=== PATIENT | female | born 1950 | race Caucasian/White ===

== ENCOUNTER 2019-04-15 09:27 | Outpatient (CLI) | payer MEDICARE, BC ==
[2019-04-15] MEDS ORDERED: FLEC100T PO (10:21)
[2019-04-15] MEDS ORDERED: ATEN25TA PO (10:21)
[2019-04-15] MEDS ORDERED: FURO80TA77 PO (10:21)
[2019-04-15] MEDS ORDERED: APIX2.5T PO (10:21)
[2019-04-15] MEDS ORDERED: GABA300C10 PO (10:21)
[2019-04-15] MEDS ORDERED: LACT1CAP35 PO (10:58)
[2019-04-15] MEDS ORDERED: CALC0.25 PO (10:58)
[2019-04-15] MEDS ORDERED: INSU100I18 SC (10:58)
[2019-04-15] MEDS ORDERED: Iron INJ (10:58)
[2019-04-15] MEDS ORDERED: CALC300T5 PO (10:58)
[2019-04-15] MEDS ORDERED: CHOL100015 PO (10:58)
[2019-04-15] MEDS ORDERED: OMEG1CAP23 PO (10:58)
[2019-04-15] MEDS ORDERED: ALUMINUM PO (10:58)
[2019-04-15] MEDS ORDERED: ALBU1.25 NEB (11:00)
== END 2019-04-15 23:59 | disposition home or self-care (01) ==
LOC: STAR 09:27
PROVIDERS: ATTEND Surgery
DX: Z02.9 Encounter for administrative examinations, unspecified (principal)

== ENCOUNTER 2019-04-18 07:11 | Day surgery (SDC) | payer MEDICARE, BC ==
[2019-04-15 11:19] LABS: BASOPHILS # (AUTO) 0.01 x10^3/uL (0-0.1); BASOPHILS % (AUTO) 0 % (0-1); EOSINOPHILS # (AUTO) 0.21 x10^3/uL (0-0.4); EOSINOPHILS % (AUTO) 3 % (1-7); LYMPHOCYTES # (AUTO) 1.03 x10^3/uL (1-3.4); LYMPHOCYTES % (AUTO) 14 % (22-44); MD NO; MEAN CORPUSCULAR HEMOGLOBIN 32.9 pg (27.0-34.8); MEAN CORPUSCULAR VOLUME 99.7 fL (80-100); MEAN PLATELET VOLUME 8.4 fL (7.4-10.4); MONOCYTES % (AUTO) 6 % (2-9); NEUTROPHILS # (AUTO) 5.64 x10^3/uL (1.8-6.8); NEUTROPHILS % (AUTO) 77 % (42-75); PLATELET COUNT 189 x10^3/uL (130-400); RED BLOOD COUNT 4.05 x10^6/uL (3.82-5.3); RED CELL DISTRIBUTION WIDTH 14.4 % (9.6-15.2)
[2019-04-15 11:31] LABS: INTERNATIONAL NORMALIZED RATIO 0.95 (0.93-1.1)
[2019-04-15 11:33] LABS: CALCIUM 9.2 mg/dL (8.5-10.1); CHLORIDE 101 mmol/L (98-107)
[2019-04-15 11:40] LABS: ALANINE AMINOTRANSFERASE 32 U/L (12-78); ALBUMIN 3.5 g/dL (3.4-5.0); ALKALINE PHOSPHATASE 114 U/L (45-117); ANION GAP 8 mmol/L (5-15); BILIRUBIN,TOTAL 0.4 mg/dL (0.2-1.0); CREATININE 4.89 mg/dL (0.55-1.02); TOTAL PROTEIN 7.4 g/dL (6.4-8.2)
[~2019-04-18] VITALS: Ht 170.2 cm; Wt 135.0 kg
[~2019-04-18 07:11] MED LIST: ALBU1.25 NEB; ALUMINUM PO; APIX2.5T PO; ATEN25TA PO; CALC0.25 PO; CALC300T5 PO; CHOL100015 PO; FLEC100T PO; FURO80TA77 PO; GABA300C10 PO; INSU100I18 SC; Iron INJ; LACT1CAP35 PO; OMEG1CAP23 PO
[2019-04-18] MEDS ORDERED: BUPIVACAINE/PF 0.5% ONE ×2 (07:12→10:41)
[2019-04-18] MEDS ORDERED: LIDOCAINE 1%, 20ML ONE (07:13)
[2019-04-18] MEDS ORDERED: BACITRACIN 50,000 UNIT ONE (07:13)
[2019-04-18] MEDS ORDERED: HEPARIN 1,000 UNITS/ML, 10ML ONE (07:13)
[2019-04-18] MEDS ORDERED: PAPAVERINE 30 MG/ML, 2ML ONE (07:13)
[2019-04-18] MEDS ORDERED: PROTAMINE SULFATE 10 MG/ML, 5ML ONE (07:13)
[2019-04-18] MEDS ORDERED: THROMBIN 5,000 UNIT VIAL TP ONE (07:13)
[2019-04-18] MEDS ORDERED: EPINEPHRINE 1 MG/ML, 1ML ONE (07:13)
[2019-04-18 08:44] VITALS: BP 157/76
[2019-04-18] MEDS ORDERED: SODIUM CHLORIDE 0.9% 1,000 ML IV SCH (09:02)
[2019-04-18] MEDS ORDERED: MIDAZOLAM 1 MG/ML, 2ML ONE (10:16)
[2019-04-18] MEDS ORDERED: FENTANYL PF 250 MCG/5ML ONE (10:17)
[2019-04-18] MEDS ORDERED: DEXAMETHASONE 4 MG/ML, 1ML ONE (10:17)
[2019-04-18] MEDS ORDERED: ROCURONIUM 10MG/ML,5ML ONE (10:18)
[2019-04-18] MEDS ORDERED: PROPOFOL 10 MG/ML, 20ML ONE (10:18)
[2019-04-18] MEDS ORDERED: EPHEDRINE 50 MG/ML, 1ML ONE (10:22)
[2019-04-18] MEDS ORDERED: GLYCOPYRROLATE 0.2MG/1ML, 5ML ONE (10:22)
[2019-04-18] MEDS ORDERED: CLINDAMYCIN 150 MG/ML, 6ML ONE (10:41)
[2019-04-18] MEDS ORDERED: DIPHENHYDRAMINE 50 MG/ML, 1ML ONE (10:43)
[2019-04-18] MEDS ORDERED: CEFAZOLIN 1,000 MG ONE (10:44)
[2019-04-18] MEDS ORDERED: LABETALOL 5MG/ML, 20ML IV PRN (11:00)
[2019-04-18] MEDS ORDERED: DIAZEPAM 5 MG/ML, 2ML IVPush PRN (11:00)
[2019-04-18] MEDS ORDERED: PROMETHAZINE 12.5 MG SUPP PR PRN (11:00)
[2019-04-18] MEDS ORDERED: MIDAZOLAM 1 MG/ML, 2ML IV PRN (11:00)
[2019-04-18] MEDS ORDERED: FENTANYL PF 100 MCG/2ML IV PRN (11:00)
[2019-04-18] MEDS ORDERED: ALBUTEROL SULFATE 2.5 MG/3 ML NPPB PRN (11:00)
[2019-04-18] MEDS ORDERED: HYDROmorphone 2 MG/ML, 1ML IVPush PRN (11:00)
[2019-04-18] MEDS ORDERED: HALOPERIDOL 5 MG/ML IV PRN (11:00)
[2019-04-18] MEDS ORDERED: ONDANSETRON 2MG/ML, 2ML IV PRN (11:00)
[2019-04-18] MEDS ORDERED: ONDANSETRON ODT 8 MG PO PRN (11:00)
[2019-04-18] MEDS ORDERED: OXYcodone 5 MG/5 ML ORAL.SOL UDC PO PRN (11:00)
[2019-04-18] MEDS ORDERED: MEPERIDINE/PF 25MG/ML,1ML IVPush PRN (11:00)
[2019-04-18] MEDS ORDERED: PROMETHAZINE 25 MG/ML, 1ML IV PRN (11:00)
[2019-04-18] MEDS ORDERED: ACETAMINOPHEN 325 MG TABLET PO PRN (11:00)
[2019-04-18] MEDS ORDERED: EPHEDRINE 50 MG/ML, 1ML IVPush PRN (11:00)
[2019-04-18] MEDS ORDERED: hydrALAzine 20 MG/ML, 1ML IV PRN (11:00)
[2019-04-18] MEDS ORDERED: SUGAMMADEX 200 MG/2 ML IVPush ONE ×2 (11:13→11:18)
[2019-04-18] MEDS ORDERED: ONDANSETRON 2MG/ML, 2ML ONE (11:13)
[2019-04-18] MEDS ORDERED: ACETAMINOPHEN 650 MG/20.3 ML UDC ONE (11:49)
[2019-04-18] MEDS ORDERED: hydrALAzine 20 MG/ML, 1ML ONE (12:03)
== END 2019-04-18 13:35 | disposition home or self-care (01) ==
LOC: OUT 07:11
PROVIDERS: ATTEND Surgery
DX: N18.6 End stage renal disease (principal); E11.22 Type 2 diabetes mellitus with diabetic chronic kidney disease; I13.2 Hypertensive heart and chronic kidney disease with heart failure and with stage 5 chronic kidney disease, or end stage renal disease; I50.9 Heart failure, unspecified; I48.91 Unspecified atrial fibrillation; E66.01 Morbid (severe) obesity due to excess calories; Z79.01 Long term (current) use of anticoagulants; Z88.0 Allergy status to penicillin; Z88.5 Allergy status to narcotic agent; Z88.8 Allergy status to other drugs, medicaments and biological substances; Z91.040 Latex allergy status; Z99.2 Dependence on renal dialysis; Z82.49 Family history of ischemic heart disease and other diseases of the circulatory system
CPT/HCPCS: 36415; 36821; 80047; 80053; 85025; 85610; 85730; 93005; J0171; J0360; J0690; J1100; J1200; J1644; J2250; J2405; J2440; J2704; J3010; J7030; 82962; 99283; J2720

== ENCOUNTER 2019-04-18 19:29 | Emergency (ER) | payer MEDICARE, BC ==
[~2019-04-18] VITALS: Ht 170.2 cm; Wt 138.0 kg
[2019-04-18 19:33] VITALS: BP 147/47
[2019-04-18] MEDS ORDERED: NEOSPORIN OINT. PKT 1 PACKET ONE (20:20)
--- NOTE | 2019-04-18 20:36 | NUR ---
CLEANED WRIST APPLIED BACTRACIN AND COVERED WITH GAUZE AND TEGADERM.
== END 2019-04-18 20:58 | disposition home or self-care (01) ==
LOC: ED 20:52
DX: T81.31XA Disruption of external operation (surgical) wound, not elsewhere classified, initial encounter (principal); I11.0 Hypertensive heart disease with heart failure; I50.9 Heart failure, unspecified; E11.9 Type 2 diabetes mellitus without complications; I48.91 Unspecified atrial fibrillation
CPT/HCPCS: 82962; 99283